=== PATIENT | male | born 1965 | race Caucasian/White ===

== ENCOUNTER 2021-09-29 17:47 | Emergency (ER) | payer MEDICAID, OTHER ==
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
[2021-09-29] MEDS ORDERED: TORAdol 30 mg Injection ONE (19:08)
[2021-09-29] MEDS: TORAdol 30 mg Injection IM ONE (19:10)
[2021-09-29 19:29] VITALS: BP 176/100; PULSE 105; O2SAT 98
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
== END 2021-09-29 19:28 | disposition home or self-care (01) ==
LOC: ED 17:47
DX: S01.01XA Laceration without foreign body of scalp, initial encounter (principal); V18.4XXA Pedal cycle driver injured in noncollision transport accident in traffic accident, initial encounter; Y93.55 Activity, bike riding; Y92.410 Unspecified street and highway as the place of occurrence of the external cause; S06.9X1A Unspecified intracranial injury with loss of consciousness of 30 minutes or less, initial encounter; Z72.0 Tobacco use
CPT/HCPCS: 12002; 70450; 96372; 99284; J1885

== ENCOUNTER 2021-10-09 12:50 | Emergency (ER) | payer MEDICAID ==
[2021-10-09 13:29] VITALS: BP 181/126; PULSE 95; O2SAT 98
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
== END 2021-10-09 13:49 | disposition home or self-care (01) ==
LOC: ED 12:50
DX: Z48.02 Encounter for removal of sutures (principal); S01.01XD Laceration without foreign body of scalp, subsequent encounter; I10 Essential (primary) hypertension; Z72.0 Tobacco use
CPT/HCPCS: 99283

== ENCOUNTER 2024-02-02 11:49 | Emergency (ER) | payer OTHER ==
--- NOTE | 2024-02-02 11:52 | ERPHSYRPT ---
- History of Present Illness Time Seen by Provider: 02/02/24 11:52 Historian: patient, family Exam Limitations: no limitations Physician History: This is a 58-year-old male who presents by private vehicle with vomiting and abdominal pain that began yesterday. He describes the pain as generalized in location moderate to severe in intensity and it is sharp and cramping. He has had an episode of coffee-ground appearing black emesis and black stool. He has not used any iron or Pepto-Bismol. Patient states he does not consume alcohol. He does not use illicit drugs other than marijuana occasionally and is a daily smoker of tobacco cigarettes. Patient has no prior abdominal surgery history. He has never had this kind of pain in the past. He states no other individuals that he is aware of and is around have similar symptoms. Timing/Duration: yesterday Activities at Onset: none Quality: cramping, sharpness Abdominal Pain Onset Location: generalized abdomen Pain Radiation: no radiation Severity of Pain-Max: moderate Severity of Pain-Current: moderate Modifying Factors: Improves With: vomiting Associated Symptoms: loss of appetite, nausea, vomiting, weakness, No chest pain, No diaphoresis, No diarrhea, No fever/chills, No shortness of breath Previous symptoms: no prior history, no recent treatment Allergies/Adverse Reactions: No Known Drug Allergies Allergy (Verified 02/02/24 11:55) Hx Tetanus, Diphtheria Vaccination/Date Given: No Hx Influenza Vaccination/Date Given: No Hx Pneumococcal Vaccination/Date Given: No Travel Risk - International Travel Have you traveled outside of the country in past 3 weeks: No - Emerging Infectious Disease Are you exhibiting symptoms associated with any current EIDs: No - Vaccine Status Hx Covid Vaccintation/Booster/Date Given: No - Review of Systems Constitutional: No Symptoms Eyes: No Symptoms Ears, Nose, & Throat: No Symptoms Respiratory: No Symptoms Cardiac: No Symptoms Abdominal/Gastrointestinal: Abdominal Pain, Nausea, Vomiting (Coffee-ground emesis), Other (Passage of black stool) Genitourinary Symptoms: No Symptoms Musculoskeletal: No Symptoms Skin: No Symptoms Neurological: No Symptoms Psychological: No Symptoms Endocrine: No Symptoms Hematologic/Lymphatic: No Symptoms Immunological/Allergic: No Symptoms All Other Systems: Reviewed and Negative - Past Medical History Pertinent Past Medical History: No Neurological History: No Pertinent History ENT History: No Pertinent History Cardiac History: No Pertinent History Respiratory History: No Pertinent History Endocrine Medical History: No Pertinent History Musculoskeletal History: No Pertinent History GI Medical History: No Pertinent History History: No Pertinent History Psycho-Social History: No Pertinent History Male Reproductive Disorders: No Pertinent History - Past Surgical History Past Surgical History: No Neuro Surgical History: No Pertinent History Cardiac: No Pertinent History Respiratory: No Pertinent History Gastrointestinal: No Pertinent History Genitourinary: No Pertinent History Musculoskeletal: No Pertinent History Male Surgical History: No Pertinent History Significant Family History: no pertinent family hx - Social History Smoking Status: Current every day smoker How long have you smoked: 30 Exposure to second hand smoke: Yes Alcohol Use: None Drug Use: none Patient Lives Alone: No - Nursing Vital Signs Nursing Vital Signs: Initial Vital Signs Temperature 98.3 F 02/02/24 11:56 Pulse Rate 111 H 02/02/24 11:56 Respiratory Rate 20 02/02/24 11:56 Blood Pressure 169/104 02/02/24 11:56 O2 Sat by Pulse Oximetry 100 02/02/24 11:56 Pain Scale Pain Intensity 5 - Physical Exam General Appearance: no apparent distress, alert, anxiety Eye Exam: PERRL/EOMI, eyes nml inspection Ears, Nose, Throat Exam: normal ENT inspection, moist mucous membranes Neck Exam: normal inspection, non-tender, supple, full range of motion Respiratory Exam: normal breath sounds, lungs clear, No chest tenderness, No respiratory distress Cardiovascular Exam: tachycardia Gastrointestinal/Abdomen Exam: soft, normal bowel sounds, tenderness (Mild diffuse), guarding (Mild diffuse to palpation), No rebound Rectal Exam: not done Back Exam: normal inspection, normal range of motion, No CVA tenderness, No vertebral tenderness Extremity Exam: normal inspection, normal range of motion, pelvis stable Neurologic Exam: alert, oriented x 3, cooperative, 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 There is borderline prolonged QT interval. The QTc is 480) Ordered Tests: Active Orders 24 hr Category Date Time Status Clean Catch Urine Specimen STAT Care 02/02/24 12:07 Active IV Insertion STAT Care 02/02/24 12:07 Active ABDOMEN AND PELVIS W/0 CONTRAS [CT] Stat Exams 02/02/24 12:10 Completed AMYLASE Stat Lab 02/02/24 12:36 Completed CBC W DIFF Stat Lab 02/02/24 12:36 Completed CMP Stat Lab 02/02/24 12:36 Completed CULTURE,URINE Stat Lab 02/02/24 14:19 Received ETHYL ALCOHOL Stat Lab 02/02/24 12:36 Completed LIPASE Stat Lab 02/02/24 12:36 Completed MONO SCREEN Stat Lab 02/02/24 12:36 Completed Occult Blood-Fecal Screen (Diagnostic) [OB-FECAL SCREEN Lab 02/02/24 Ordered ] Stat UA W/RFX UR CULTURE Stat Lab 02/02/24 14:19 Completed Urine Triage Profile Stat Lab 02/02/24 14:19 Received Medication Summary Discontinued Medications Generic Name Dose Route Start Last Admin Trade Name Freq PRN Reason Stop Dose Admin Hydromorphone HCl 1 mg 02/02/24 12:07 02/02/24 12:23 Hydromorphone 1 Mg/1ml Inj IV 02/02/24 12:08 1 mg STAT ONE Administration Hydromorphone HCl Confirm 02/02/24 12:19 Hydromorphone 1 Mg/1ml Inj Administered 02/02/24 12:20 Dose 1 mg .ROUTE .STK-MED ONE Sodium Chloride 1,000 mls @ 999 mls/hr 02/02/24 12:07 02/02/24 13:22 Sodium Chloride 0.9% 1000 Ml IV 02/02/24 13:07 Infused .Q1H1M STA Infusion Sodium Chloride Confirm 02/02/24 12:19 Sodium Chloride 0.9% 1000 Ml Administered 02/02/24 12:20 Dose 1,000 mls @ ud .ROUTE .STK-MED ONE Ondansetron HCl 4 mg 02/02/24 12:07 02/02/24 12:22 Ondansetron Hcl 4 Mg/2 Ml Vial IV 02/02/24 12:08 4 mg STAT ONE Administration Ondansetron HCl Confirm 02/02/24 12:19 Ondansetron Hcl 4 Mg/2 Ml Vial Administered 02/02/24 12:20 Dose 4 mg .ROUTE .STK-MED ONE Pantoprazole Sodium 40 mg 02/02/24 12:07 02/02/24 12:23 Pantoprazole 40 Mg Vial IV 02/02/24 12:08 40 mg STAT ONE Administration Pantoprazole Sodium Confirm 02/02/24 12:19 Pantoprazole 40 Mg Vial Administered 02/02/24 12:20 Dose 40 mg IV .STK-MED ONE Lab/Rad Data: Laboratory Result Diagrams 02/02/24 12:36 02/02/24 12:36 Laboratory Results 02/02/24 02/02/24 02/02/24 Range/Units 14:19 12:50 12:36 WBC (4.23-9.07) x10^3/uL RBC (4.63-6.08) x10^6/uL Hgb (13.7-17.5) g/dL Hct (40.1-51.0) % MCV (79.0-92.2) fL MCH (25.7-32.2) pg MCHC (32.3-36.5) g/dL RDW (11.6-14.4) % Plt Count (163-337) x10^3/uL MPV (9.4-12.4) fL Gran % (34.0-67.9) % Immature Gran % (Auto) (0.001-0.429) % Nucleat RBC Rel Count (0.00-0.2) % Eos # (Auto) (0.04-0.54) x10^3/uL Immature Gran # (Auto) (0.001-0.031) x10^3u/L Absolute Lymphs (auto) (1.32-3.57) x10^3/uL Absolute Monos (auto) (0.30-0.82) x10^3/uL Absolute Nucleated RBC (0.00-0.012) x10^3u/L Lymphocytes % (21.8-53.1) % Monocytes % (5.3-12.2) % Eosinophils % (0.8-7.0) % Basophils % (0.2-1.2) % Absolute Granulocytes (1.78-5.38) x10^3/uL Basophils # (0.01-0.08) x10^3/uL Sodium (135-145) mmol/L Potassium (3.5-5.1) mmol/L Chloride (98-107) mmol/L Carbon Dioxide (22-30) mmol/L Anion Gap (5-15) MEQ/L BUN (9-20) mg/dL Creatinine (0.66-1.25) mg/dL Estimated GFR ML/MIN Glucose (74-106) mg/dL Calcium (8.4-10.2) mg/dL Total Bilirubin (0.2-1.3) mg/dL AST (17-59) U/L ALT (0-50) U/L Alkaline Phosphatase (38-126) U/L Serum Total Protein (6.3-8.2) g/dL Albumin (3.5-5.0) g/dL Amylase (30-110) U/L Lipase (23-300) U/L Urine Color Yellow (Yellow) Urine Appearance Cloudy A (Clear) Urine pH 5.0 (4.6-8.0) Ur Specific Shannock 1.020 (1.005-1.030) Urine Protein Trace A (Negative) Urine Glucose (UA) Negative (Negative) mg/dL Urine Ketones Negative (Negative) Urine Blood Negative (Negative) Urine Nitrite Negative (Negative) Urine Bilirubin Negative (Negative) Urine Urobilinogen 0.2 (0.2) mg/dL Ur Leukocyte Esterase Negative (Negative) U Hyaline Cast (Auto) None Seen (0-2) /LPF Urine Microscopic RBC 0-2 (0-5) /HPF Urine Microscopic WBC 6-10 A (0-5) /HPF Ur Epithelial Cells Few (None Seen) /HPF Urine Bacteria None Seen (None Seen) /HPF Granular Casts 3-5 A (None Seen) /LPF Urine Sperm Rare A (None Seen) /HPF Urine Culture Reflexed YES (NO) Ethyl Alcohol (0-10) mg/dL Monoscreen NEGATIVE (NEGATIVE) Influenza Type A Ag NEGATIVE (NEGATIVE) Influenza Type B Ag NEGATIVE (NEGATIVE) RSV (PCR) NEGATIVE (NEGATIVE) SARS-CoV-2 (PCR) NEGATIVE (NEGATIVE) 02/02/24 02/02/24 Range/Units 12:36 12:36 WBC 16.7 H (4.23-9.07) x10^3/uL RBC 3.11 L (4.63-6.08) x10^6/uL Hgb 10.4 L (13.7-17.5) g/dL Hct 30.9 L (40.1-51.0) % MCV 99.4 H (79.0-92.2) fL MCH 33.4 H (25.7-32.2) pg MCHC 33.7 (32.3-36.5) g/dL RDW 12.6 (11.6-14.4) % Plt Count 349 H (163-337) x10^3/uL MPV 10.2 (9.4-12.4) fL Gran % 77.8 H (34.0-67.9) % Immature Gran % (Auto) 0.8 H (0.001-0.429) % Nucleat RBC Rel Count 0.0 (0.00-0.2) % Eos # (Auto) 0.10 (0.04-0.54) x10^3/uL Immature Gran # (Auto) 0.13 H (0.001-0.031) x10^3u/L Absolute Lymphs (auto) 2.37 (1.32-3.57) x10^3/uL Absolute Monos (auto) 0.96 H (0.30-0.82) x10^3/uL Absolute Nucleated RBC 0.00 (0.00-0.012) x10^3u/L Lymphocytes % 14.2 L (21.8-53.1) % Monocytes % 5.8 (5.3-12.2) % Eosinophils % 0.6 L (0.8-7.0) % Basophils % 0.8 (0.2-1.2) % Absolute Granulocytes 12.97 H (1.78-5.38) x10^3/uL Basophils # 0.14 H (0.01-0.08) x10^3/uL Sodium 139 (135-145) mmol/L Potassium 4.1 (3.5-5.1) mmol/L Chloride 105 (98-107) mmol/L Carbon Dioxide 25 (22-30) mmol/L Anion Gap 12.8 (5-15) MEQ/L BUN 53 H (9-20) mg/dL Creatinine 1.31 H (0.66-1.25) mg/dL Estimated GFR 63.5 ML/MIN Glucose 150 H (74-106) mg/dL Calcium 9.2 (8.4-10.2) mg/dL Total Bilirubin 0.60 (0.2-1.3) mg/dL AST 23 (17-59) U/L ALT 30 (0-50) U/L Alkaline Phosphatase 73 (38-126) U/L Serum Total Protein 5.7 L (6.3-8.2) g/dL Albumin 3.8 (3.5-5.0) g/dL Amylase 72 (30-110) U/L Lipase 169 (23-300) U/L Urine Color (Yellow) Urine Appearance (Clear) Urine pH (4.6-8.0) Ur Specific [place] (1.005-1.030) Urine Protein (Negative) Urine Glucose (UA) (Negative) mg/dL Urine Ketones (Negative) Urine Blood (Negative) Urine Nitrite (Negative) Urine Bilirubin (Negative) Urine Urobilinogen (0.2) mg/dL Ur Leukocyte Esterase (Negative) U Hyaline Cast (Auto) (0-2) /LPF Urine Microscopic RBC (0-5) /HPF Urine Microscopic WBC (0-5) /HPF Ur Epithelial Cells (None Seen) /HPF Urine Bacteria (None Seen) /HPF Granular Casts (None Seen) /LPF Urine Sperm (None Seen) /HPF Urine Culture Reflexed (NO) Ethyl Alcohol < 10 (0-10) mg/dL Monoscreen (NEGATIVE) Influenza Type A Ag (NEGATIVE) Influenza Type B Ag (NEGATIVE) RSV (PCR) (NEGATIVE) SARS-CoV-2 (PCR) (NEGATIVE) - Progress Progress: improved, pain not gone completely, re-examined Progress Note: 02/02/24 12:29 My medical decision making and the assignment of moderate complexity to this patient's medical issue today is based on review of the patient's past medical history, review the patient's medication list, review of the patient drug allergy list, history present illness and physical findings on examination. The workup today includes placement of intravenous line, infusion of normal saline solution, CBC, CMP, amylase, lipase, alcohol level, urinalysis, urine drug triage, viral swabs, monotest, CT scan of the abdomen pelvis. Will provide the patient with intravenous antiemetic, intravenous narcotic and intravenous Protonix. Differential diagnosis includes but is not limited to gastric/peptic ulcer disease, gastritis, pancreatitis, viral illness, other upper GI bleed 02/02/24 13:[address] scan of the abdomen pelvis without contrast was interpreted by the radiologist and I reviewed the impression. The impression states normal appendix. Stomach is distended with food and fluid. There is minimal sigmoid diverticulosis without diverticulitis. There is no free air and no free fluid. There is minimal aortoiliac calcifications without abdominal aortic aneurysm. There is bilateral, small fatty inguinal hernias present. 02/02/24 14:24 I interpreted the patient's laboratory data results. The patient is mildly anemic. In the last year he has dropped from a hemoglobin of 16 down to above 10. Patient's white blood cell count is 16,000. This may be due to the vomiting the patient has experienced since yesterday. Clinically, he states he is feeling much better after the infusion of crystalloid. We are awaiting the urinalysis results 02/02/24 14:42 02/02/24 14:47 Urinalysis shows white blood cell present. However the leukocyte Estrace and nitrite levels are negative. Will await the culture determine if the patient requires any antibiotics. Counseled pt/family regarding: lab results, diagnosis, need for follow-up, rad results Medical Desision Making - Independent Historian Additional History obtained from: Relative/friend - Diagnostic Testing Diagnostic test were ordered, analyzed, and reviewed by me: Yes Radiological Interpretation: Reviewed by me, Teleradiologist Report - Risk of complications The pt has a mod risk of morbidity or mortality based on: Need for prescription drug management - Departure Departure Disposition: Home Clinical Impression: Vomiting, Anemia Condition: Stable Critical Care Time: No Referrals: RASHEEDA GIL [Primary Care Provider] - Follow up/PCP as directed Additional Instructions: Drink plenty of fluids before advancing your diet. Avoid fatty greasy spicy foods. Take your medications as prescribed. Call your primary care provider today, 02/02/2024, to make arrangements for follow-up appointment to be evaluated in the next 3 to 5 days. Prescriptions: Ondansetron ODT 4 MG [Zofran Odt 4 mg] 4 mg PO Q6H PRN PRN #10 tablet PRN Reason: Vomiting Famotidine 20 mg [Pepcid 20 MG] 20 mg PO DAILY #10 tablet
[2024-02-02] MEDS ORDERED: PROTONIX 40 MG IV IV ONE (12:19)
[2024-02-02] MEDS ORDERED: Sodium Chloride 0.9% 1000 ML 1,000 ML ONE (12:19)
[2024-02-02] MEDS ORDERED: Hydromorphone 1 mg/ml Injection ONE (12:19)
[2024-02-02] MEDS ORDERED: Zofran 4 MG/2 ML VIAL ONE (12:19)
[2024-02-02] MEDS: Sodium Chloride 0.9% 1000 ML 1,000 ML IV STA (12:21)
[2024-02-02] MEDS: Zofran 4 MG/2 ML VIAL IV ONE (12:22)
[2024-02-02] MEDS: Hydromorphone 1 mg/ml Injection IV ONE (12:23)
[2024-02-02] MEDS: PROTONIX 40 MG IV IV ONE (12:23)
[2024-02-02 12:37] LABS: Absolute Neutrophil Ct (ANC) 12.97 x10^3/uL (1.78-5.38); BASOPHIL % 0.8 % (0.2-1.2); Basophil (Absolute #) 0.14 x10^3/uL (0.01-0.08); Eosinophil % 0.6 % (0.8-7.0); Hematocrit 30.9 % (40.1-51.0); Hemoglobin 10.4 g/dL (13.7-17.5); IMMATURE GRAN # 0.13 x10^3u/L (0.001-0.031); IMMATURE GRAN % 0.8 % (0.001-0.429); Lymphocyte (Absolute #) 2.37 x10^3/uL (1.32-3.57); Lymphocytes % 14.2 % (21.8-53.1); Mean Cell Volume 99.4 fL (79.0-92.2); Mean Corpuscular Hemoglobin 33.4 pg (25.7-32.2); Mean Corpuscular Hgb Concent. 33.7 g/dL (32.3-36.5); Mean Platelet Volume 10.2 fL (9.4-12.4); Monocyte (Absolute #) 0.96 x10^3/uL (0.30-0.82); Monocytes % 5.8 % (5.3-12.2); Neutrophil % 77.8 % (34.0-67.9); Platelet Count 349 x10^3/uL (163-337); Red Blood Count 3.11 x10^6/uL (4.63-6.08); Red Cell Distribution Width 12.6 % (11.6-14.4); White Blood Count 16.7 x10^3/uL (4.23-9.07)
[2024-02-02 12:55] LABS: ALBUMIN 3.8 g/dL (3.5-5.0); ALKALINE PHOSPHATASE 73 U/L (38-126); AMYLASE 72 U/L (30-110); ANION GAP 12.8 MEQ/L (5-15); BLOOD UREA NITROGEN 53 mg/dL (9-20); CHLORIDE 105 mmol/L (98-107); Calcium 9.2 mg/dL (8.4-10.2); Carbon Dioxide 25 mmol/L (22-30); Creatinine 1 1.31 mg/dL (0.66-1.25); EST GLOMERULAR FILTRATION RATE 63.5 ML/MIN; ETHYL ALCOHOL < 10 mg/dL (0-10); Glucose 150 mg/dL (74-106); LIPASE 169 U/L (23-300); Potassium 4.1 mmol/L (3.5-5.1); SGOT/AST 23 U/L (17-59); SGPT/ALT 30 U/L (0-50); SODIUM 139 mmol/L (135-145); Total Protein 5.7 g/dL (6.3-8.2)
--- NOTE | 2024-02-02 13:05 | XRAY ---
Indication: Coffee-ground emesis. Black stool. Multiple contiguous images obtained through the abdomen and pelvis without contrast. Comparison: None Lung bases clear. Heart not enlarged. Stomach distended with food/fluid. Noncontrasted stomach and bowel loops appear nonobstructed with normal appendix. Minimal sigmoid diverticulosis without diverticulitis. Left kidney demonstrates 1.3 cm nonobstructing calculus. No free fluid/air. Remaining liver, gallbladder, pancreas, spleen, adrenal glands, kidneys, ureters, and bladder are unremarkable for noncontrast exam. Minimal aortoiliac calcifications without AAA. Osseous structures intact with mild levoscoliosis. Small fatty bilateral inguinal hernias. Impression: 1. Chronic findings including sigmoid diverticulosis, nonobstructing left renal calculus, arteriosclerotic disease, levoscoliosis, and fatty bilateral inguinal hernias. 2. Remaining CT abdomen/pelvis without contrast exam is negative.
[2024-02-02 13:08] VITALS: TEMP 97.7
[2024-02-02 13:35] LABS: INFLUENZA A NEGATIVE (NEGATIVE); INFLUENZA B NEGATIVE (NEGATIVE); RESPIRATORY SYNCTIAL VIRUS NEGATIVE (NEGATIVE); SARS-CoV-2 Xpert Express NEGATIVE (NEGATIVE)
[2024-02-02 14:21] VITALS: PULSE 92; RESP 18
[2024-02-02 14:42] LABS: Appearance Cloudy (Clear); Bacteria None Seen /HPF (None Seen); Bilirubin Negative (Negative); Blood Negative (Negative); Epithelial Cells Few /HPF (None Seen); Glucose, Urine Negative (Negative); Ketones Negative (Negative); Leukocyte Esterase Negative (Negative); Nitrite Negative (Negative); Protein,Urine Dip Trace (Negative); RBC 0-2 /HPF (0-5); Urobilinogen 0.2 mg/dL (0.2)
[2024-02-02 14:43] LABS: ADD URINE CULTURE? YES (NO); Hyaline Casts None Seen /LPF (0-2); Sperm Rare /HPF (None Seen)
[2024-02-02 14:45] LABS: Barbiturate,Urine NEGATIVE (NEGATIVE); Benzodiazepine,Urine NEGATIVE (NEGATIVE); Cocaine,Urine NEGATIVE (NEGATIVE); Methadone,Urine NEGATIVE (NEGATIVE); Opiate,Urine POSITIVE (NEGATIVE); PCP,Urine NEGATIVE (NEGATIVE); THC,Urine POSITIVE (NEGATIVE)
[2024-02-02 15:10] LABS: Amphetamine,Urine POSITIVE (NEGATIVE)
[2024-02-02 15:22] VITALS: BP 156/106; O2SAT 98
== END 2024-02-02 15:31 | disposition home or self-care (01) ==
LOC: ED 11:49
DX: R11.2 Nausea with vomiting, unspecified (principal); D64.9 Anemia, unspecified; R10.84 Generalized abdominal pain; Z72.0 Tobacco use
CPT/HCPCS: 0241U; 36000; 36415; 74176; 80053; 80307; 81001; 82077; 82150; 83690; 85025; 86308; 87086; 96374; 96375; 99284; J1170; J2405

== ENCOUNTER 2024-08-28 18:03 | Emergency (ER) | payer OTHER ==
--- NOTE | 2024-08-28 18:14 | ERPHSYRPT ---
- History of Present Illness Time Seen by Provider: 08/28/24 18:14 Source: patient, family Exam Limitations: no limitations Physician History: This is a 59-year-old white male patient who arrives by private vehicle accompanied by friend with complaints of intermittent hematuria and left testicular pain. The pain was worse today. Patient denies trauma to the site. Patient states that he stopped riding his bike 3 weeks ago and he has noticed the above stated symptoms/complaints. He does not have a history of hypertension but does have a history of hyperlipidemia. He has no documented liver disease. He has no history of hematuria. He denies flank pain. He de nies abdominal pain. He does not consume alcohol. He is not on any anticoagulation therapy. Timing/Duration: intermittent, worse Onset Location: left testicle Pain Radiation: none Severity of Pain-Max: moderate Severity of Pain-Current: moderate Modifying Factors: Improves With: other (Patient states it seems to have come on after he quit riding his bike 3 weeks ago.) Associated Symptoms: other (Left testicular pain and hematuria) Prior abdominal problems: none Sexual intercourse history: non-contributory Allergies/Adverse Reactions: No Known Drug Allergies Allergy (Verified 08/28/24 18:14) Hx Tetanus, Diphtheria Vaccination/Date Given: No Hx Influenza Vaccination/Date Given: No Hx Pneumococcal Vaccination/Date Given: No Travel Risk - International Travel Have you traveled outside of the country in past 3 weeks: No - Emerging Infectious Disease Are you exhibiting symptoms associated with any current EIDs: No - Past Medical History Pertinent Past Medical History: No Neurological History: No Pertinent History ENT History: No Pertinent History Cardiac History: No Pertinent History Respiratory History: No Pertinent History Endocrine Medical History: No Pertinent History Musculoskeletal History: No Pertinent History GI Medical History: No Pertinent History History: No Pertinent History Psycho-Social History: No Pertinent History Male Reproductive Disorders: No Pertinent History - Past Surgical History Past Surgical History: No Neuro Surgical History: No Pertinent History Cardiac: No Pertinent History Respiratory: No Pertinent History Gastrointestinal: No Pertinent History Genitourinary: No Pertinent History Musculoskeletal: No Pertinent History Male Surgical History: No Pertinent History Significant Family History: no pertinent family hx - Social History Smoking Status: Current every day smoker How long have you smoked: 30 Exposure to second hand smoke: Yes Alcohol Use: None Drug Use: none Patient Lives Alone: No - Social Determinants of Health Will the patient participate in the screening: Declined to provide - Review of Systems Constitutional: No Symptoms Eyes: No Symptoms Ears, Nose, & Throat: No Symptoms Respiratory: No Symptoms Cardiac: No Symptoms Abdominal/Gastrointestinal: No Symptoms Genitourinary Symptoms: Hematuria, Testicle Pain (Left side) Musculoskeletal: No Symptoms Skin: No Symptoms Neurological: No Symptoms Psychological: No Symptoms Endocrine: No Symptoms Hematologic/Lymphatic: No Symptoms Immunological/Allergic: No Symptoms All Other Systems: Reviewed and Negative - Nursing Vital Signs Nursing Vital Signs: Initial Vital Signs Temperature 96.9 F 08/28/24 18:16 Pulse Rate 102 H 08/28/24 18:16 Respiratory Rate 18 08/28/24 18:16 Blood Pressure 157/132 08/28/24 18:16 O2 Sat by Pulse Oximetry 99 08/28/24 18:16 Pain Scale Pain Intensity 3 - Physical Exam General Appearance: no apparent distress, alert, anxiety Eye Exam: PERRL/EOMI, eyes nml inspection Ears, Nose, Throat Exam: normal ENT inspection, moist mucous membranes Neck Exam: normal inspection, non-tender, supple, full range of motion Respiratory Exam: airway intact, No chest tenderness, No respiratory distress Cardiovascular Exam: regular rate/rhythm, normal heart sounds, normal peripheral pulses Gastrointestinal/Abdomen Exam: soft, normal bowel sounds, No tenderness Rectal Exam: not done Male Genital Exam: normal genitalia, scrotum tenderness (L), testicular tenderness (L) Back Exam: normal inspection, normal range of motion, No CVA tenderness, No vertebral tenderness Extremity Exam: normal inspection, normal range of motion, pelvis stable Neurologic Exam: alert, oriented x 3, cooperative, surgeon partner II-XII nml as tested, nml cerebellar function, nml station & gait, sensation nml Skin Exam: normal color, warm, dry Lymphatic Exam: No adenopathy SpO2 Interpretation: normal O2 Delivery: Room Air - Course Nursing assessment & vital signs reviewed: Yes Ordered Tests: Active Orders 24 hr Category Date Time Status TESTICLE [US] Stat Exams 08/28/24 18:35 Ordered CBC W DIFF Stat Lab 08/28/24 18:45 Completed CMP Stat Lab 08/28/24 18:45 Completed CULTURE,URINE Stat Lab 08/28/24 18:34 Received PROTIME WITH INR Stat Lab 08/28/24 18:45 Completed UA W/RFX UR CULTURE Stat Lab 08/28/24 18:34 Completed Medication Summary Generic Name Dose Route Start Last Admin Trade Name Gabino PRN Reason Stop Dose Admin Levofloxacin 500 mg 08/28/24 20:11 Levofloxacin 500 Mg Tablet PO 08/28/24 20:12 STAT ONE Discontinued Medications Generic Name Dose Route Start Last Admin Trade Name Gabino PRN Reason Stop Dose Admin Clonidine 0.1 mg 08/28/24 19:26 08/28/24 19:34 Clonidine Hcl 0.1 Mg Tablet PO 08/28/24 19:27 0.1 mg STAT ONE Administration Clonidine Confirm 08/28/24 19:33 Clonidine Hcl 0.1 Mg Tablet Administered 08/28/24 19:34 Dose 0.1 mg .ROUTE .[employer] ONE Lab/Rad Data: Laboratory Result Diagrams 08/28/24 18:45 08/28/24 18:45 Laboratory Results 08/28/24 08/28/24 08/28/24 Range/Units 18:45 18:45 18:45 WBC 9.2 H (4.23-9.07) x10^3/uL RBC 5.04 (4.63-6.08) x10^6/uL Hgb 16.2 (13.7-17.5) g/dL Hct 47.0 (40.1-51.0) % MCV 93.3 H (79.0-92.2) fL MCH 32.1 (25.7-32.2) pg MCHC 34.5 (32.3-36.5) g/dL RDW 13.2 (11.6-14.4) % Plt Count 396 H (163-337) x10^3/uL MPV 9.9 (9.4-12.4) fL Gran % 63.7 (34.0-67.9) % Immature Gran % (Auto) 0.2 (0.001-0.429) % Nucleat RBC Rel Count 0.0 (0.00-0.2) % Eos # (Auto) 0.19 (0.04-0.54) x10^3/uL Immature Gran # (Auto) 0.02 (0.001-0.031) x10^3u/L Absolute Lymphs (auto) 2.06 (1.32-3.57) x10^3/uL Absolute Monos (auto) 0.95 H (0.30-0.82) x10^3/uL Absolute Nucleated RBC 0.00 (0.00-0.012) x10^3u/L Lymphocytes % 22.4 (21.8-53.1) % Monocytes % 10.3 (5.3-12.2) % Eosinophils % 2.1 (0.8-7.0) % Basophils % 1.3 H (0.2-1.2) % Absolute Granulocytes 5.86 H (1.78-5.38) x10^3/uL Basophils # 0.12 H (0.01-0.08) x10^3/uL PT 10.6 (9.4-12.5) SECONDS INR 0.97 (0.8-3.0) Sodium 141 (135-145) mmol/L Potassium 3.9 (3.5-5.1) mmol/L Chloride 109 H (98-107) mmol/L Carbon Dioxide 21 L (22-30) mmol/L Anion Gap 14.8 (5-15) MEQ/L BUN 25 H (9-20) mg/dL Creatinine 1.30 H (0.66-1.25) mg/dL Estimated GFR 63.7 ML/MIN Glucose 98 (74-106) mg/dL Calcium 8.8 (8.4-10.2) mg/dL Total Bilirubin 0.60 (0.2-1.3) mg/dL AST 31 (17-59) U/L ALT 29 (0-50) U/L Alkaline Phosphatase 91 (38-126) U/L Serum Total Protein 7.0 (6.3-8.2) g/dL Albumin 4.5 (3.5-5.0) g/dL Urine Color (Yellow) Urine Appearance (Clear) Urine pH (4.6-8.0) Ur Specific [place] (1.005-1.030) Urine Protein (Negative) Urine Glucose (UA) (Negative) mg/dL Urine Ketones (Negative) Urine Blood (Negative) Urine Nitrite (Negative) Urine Bilirubin (Negative) Urine Urobilinogen (0.2) mg/dL Ur Leukocyte Esterase (Negative) U Hyaline Cast (Auto) (0-2) /LPF Urine Microscopic RBC (0-5) /HPF Urine Microscopic WBC (0-5) /HPF Ur Epithelial Cells (None Seen) /HPF Urine Bacteria (None Seen) /HPF Urine Culture Reflexed (NO) 08/28/24 Range/Units 18:34 WBC (4.23-9.07) x10^3/uL RBC (4.63-6.08) x10^6/uL Hgb (13.7-17.5) g/dL Hct (40.1-51.0) % MCV (79.0-92.2) fL MCH (25.7-32.2) pg MCHC (32.3-36.5) g/dL RDW (11.6-14.4) % Plt Count (163-337) x10^3/uL MPV (9.4-12.4) fL Gran % (34.0-67.9) % Immature Gran % (Auto) (0.001-0.429) % Nucleat RBC Rel Count (0.00-0.2) % Eos # (Auto) (0.04-0.54) x10^3/uL Immature Gran # (Auto) (0.001-0.031) x10^3u/L Absolute Lymphs (auto) (1.32-3.57) x10^3/uL Absolute Monos (auto) (0.30-0.82) x10^3/uL Absolute Nucleated RBC (0.00-0.012) x10^3u/L Lymphocytes % (21.8-53.1) % Monocytes % (5.3-12.2) % Eosinophils % (0.8-7.0) % Basophils % (0.2-1.2) % Absolute Granulocytes (1.78-5.38) x10^3/uL Basophils # (0.01-0.08) x10^3/uL PT (9.4-12.5) SECONDS INR (0.8-3.0) Sodium (135-145) mmol/L Potassium (3.5-5.1) mmol/L Chloride (98-107) mmol/L Carbon Dioxide (22-30) mmol/L Anion Gap (5-15) MEQ/L BUN (9-20) mg/dL Creatinine (0.66-1.25) mg/dL Estimated GFR ML/MIN Glucose (74-106) mg/dL Calcium (8.4-10.2) mg/dL Total Bilirubin (0.2-1.3) mg/dL AST (17-59) U/L ALT (0-50) U/L Alkaline Phosphatase (38-126) U/L Serum Total Protein (6.3-8.2) g/dL Albumin (3.5-5.0) g/dL Urine Color [place] A (Yellow) Urine Appearance Cloudy A (Clear) Urine pH 6.0 (4.6-8.0) Ur Specific [place] 1.020 (1.005-1.030) Urine Protein 300 A (Negative) Urine Glucose (UA) 100 A (Negative) mg/dL Urine Ketones Trace A (Negative) Urine Blood Large A (Negative) Urine Nitrite Negative (Negative) Urine Bilirubin Negative (Negative) Urine Urobilinogen 1.0 A (0.2) mg/dL Ur Leukocyte Esterase Trace A (Negative) U Hyaline Cast (Auto) NONE SEEN (0-2) /LPF Urine Microscopic RBC >100 A (0-5) /HPF Urine Microscopic WBC 11-20 A (0-5) /HPF Ur Epithelial Cells Rare (None Seen) /HPF Urine Bacteria None Seen (None Seen) /HPF Urine Culture Reflexed YES (NO) - Progress Progress: unchanged Progress Note: 08/28/24 19:10 My medical decision making and the assignment of moderate complexity to this patient's medical issue today is based on review of the patient's past medical history, review of the patient's medication list, reviewed patient drug allergy list, history present illness and physical findings on examination. The workup in this patient includes CBC, CMP, PT/INR, urinalysis and ultrasound of the left testicle. Differential diagnosis includes but is not limited to orchitis, epididymitis, left testicular mass, urinary tract infection, cystitis 08/28/24 20:10 The certified histologic technician/voice intercept technician provided me with the preliminary report of this patient's testicular ultrasound. There is bilateral hydroceles, there is bilateral varicoceles, there is bilateral orchitis and there is bilateral epididymitis with left side being worse than the right. 08/28/24 20:13 I interpreted the patient's laboratory data results. Based on the laboratory data results, the patient does have hematuria and a urinary tract infection Counseled pt/family regarding: lab results, diagnosis, rad results Medical Desision Making - Independent Historian Additional History obtained from: Relative/friend - Diagnostic Testing Diagnostic test were ordered, analyzed, and reviewed by me: Yes Radiological Interpretation: Reviewed by me, Teleradiologist Report - Risk of complications The pt has a mod risk of morbidity or mortality based on: Need for prescription drug management - Departure Departure Disposition: Home Clinical Impression: Hypertension, UTI (urinary tract infection), Hematuria, Orchitis and epididymitis Condition: Stable Critical Care Time: No Referrals: RASHEEDA GIL [Primary Care Provider] - Follow up/PCP as directed Additional Instructions: Drink plenty of fluids. Take your antibiotics and other medications as prescribed. Call your primary care provider tomorrow morning, 08/29/2024, to make arrangements for follow-up appointment for further evaluation and management of your high blood pressure and blood in your urine. Discussed with referral to a urologist if indicated. Prescriptions: Ciprofloxacin [Cipro 500 MG] 500 mg PO BID #14 tablet
[2024-08-28 18:18] VITALS: RESP 18; TEMP 96.9
[2024-08-28 18:47] LABS: Appearance Cloudy (Clear); Bacteria None Seen /HPF (None Seen); Bilirubin Negative (Negative); Blood Large (Negative); Epithelial Cells Rare /HPF (None Seen); Glucose, Urine 100 mg/dL (Negative); Hyaline Casts NONE SEEN /LPF (0-2); Ketones Trace (Negative); Leukocyte Esterase Trace (Negative); Nitrite Negative (Negative); Protein,Urine Dip 300 (Negative); RBC >100 /HPF (0-5)
[2024-08-28 18:49] LABS: Absolute Neutrophil Ct (ANC) 5.86 x10^3/uL (1.78-5.38); BASOPHIL % 1.3 % (0.2-1.2); Basophil (Absolute #) 0.12 x10^3/uL (0.01-0.08); Eosinophil % 2.1 % (0.8-7.0); Eosinophil (Absolute #) 0.19 x10^3/uL (0.04-0.54); Hemoglobin 16.2 g/dL (13.7-17.5); IMMATURE GRAN # 0.02 x10^3u/L (0.001-0.031); IMMATURE GRAN % 0.2 % (0.001-0.429); Lymphocyte (Absolute #) 2.06 x10^3/uL (1.32-3.57); Lymphocytes % 22.4 % (21.8-53.1); Mean Cell Volume 93.3 fL (79.0-92.2); Mean Corpuscular Hemoglobin 32.1 pg (25.7-32.2); Mean Corpuscular Hgb Concent. 34.5 g/dL (32.3-36.5); Mean Platelet Volume 9.9 fL (9.4-12.4); Monocyte (Absolute #) 0.95 x10^3/uL (0.30-0.82); Monocytes % 10.3 % (5.3-12.2); Neutrophil % 63.7 % (34.0-67.9); Platelet Count 396 x10^3/uL (163-337); Red Blood Count 5.04 x10^6/uL (4.63-6.08); Red Cell Distribution Width 13.2 % (11.6-14.4); White Blood Count 9.2 x10^3/uL (4.23-9.07)
[2024-08-28 19:02] LABS: ALBUMIN 4.5 g/dL (3.5-5.0); ANION GAP 14.8 MEQ/L (5-15); BILIRUBIN,TOTAL 0.6 mg/dL (0.2-1.3); Calcium 8.8 mg/dL (8.4-10.2); Creatinine 1 1.3 mg/dL (0.66-1.25); EST GLOMERULAR FILTRATION RATE 63.7 ML/MIN; Potassium 3.9 mmol/L (3.5-5.1)
[2024-08-28 19:03] LABS: INR 0.97 (0.8-3.0); PROTIME 10.6 SECONDS (9.4-12.5)
[2024-08-28 19:15] VITALS: O2SAT 98
[2024-08-28] MEDS ORDERED: CLONIDINE 0.1 MG TABLET ONE ×2 (19:33→20:25)
[2024-08-28] MEDS: CLONIDINE 0.1 MG TABLET PO ONE ×2 (19:34→20:27)
[2024-08-28 20:20] VITALS: BP 154/118; PULSE 92
[2024-08-28] MEDS ORDERED: Levofloxacin 500 MG Tablet ONE (20:21)
[2024-08-28] MEDS: Levofloxacin 500 MG Tablet PO ONE (20:22)
--- NOTE | 2024-08-29 08:59 | XRAY ---
Indication: Left testicular pain. Hematuria. Two-dimensional testicular sonogram performed. Comparison: None Both testicles are homogeneous in echogenicity with increased color perfusion favoring orchitis. Right testicle measures 4.4 x 2.0 x 2.8 cm and left measures 4.0 x 2.0 x 2.9 cm. Both epididymidis prominent with mild increased color Doppler flow favoring epididymitis. Also tiny 4 mm left epididymal cyst and subcentimeter echogenic right epididymal cyst. Tiny nonspecific bilateral scrotal hydroceles. Impression: Sonographic features favoring bilateral epididymoorchitis. Also incidental tiny left and right epididymal cysts. Comment: Preliminary report was given.
== END 2024-08-28 21:04 | disposition left against medical advice (07) ==
LOC: ED 18:03
DX: N39.0 Urinary tract infection, site not specified (principal); I10 Essential (primary) hypertension; R31.9 Hematuria, unspecified; N45.3 Epididymo-orchitis; N50.812 Left testicular pain; E78.5 Hyperlipidemia, unspecified; Z79.899 Other long term (current) drug therapy; Z72.0 Tobacco use
CPT/HCPCS: 36415; 76870; 80053; 81001; 85025; 85610; 87086; 99284; A9270-GY